=== PATIENT | male | born 1955 | race Two or more races ===

== ENCOUNTER 2024-01-08 13:59 | Outpatient (CLI) | payer MEDICAID, SELFPAY | END 2024-01-08 14:00 | disposition home or self-care (01) | LOC: NFLDREF 01-28 08:31 | PROVIDERS: Visit Provider Family Medicine | DX: N39.0 Urinary tract infection, site not specified (principal) | CPT/HCPCS: 87086 ==

== ENCOUNTER 2024-01-15 09:17 | Emergency (ER) | payer MEDICAID, SELFPAY ==
[2024-01-15 09:21] VITALS: BP 117/77; PULSE 72; RESP 18; TEMP 36.8; O2SAT 97
[2024-01-15 09:31] VITALS: RESP 18
--- NOTE | 2024-01-15 09:36 | ED_ITS ---
HPI - General Adult General Chief complaint: Unspecified Complaint, Adult Stated complaint: bodyaches Time Seen by Provider: 01/15/24 09:19 History of Present Illness HPI narrative: This 69-year-old male comes in reporting generalized aches and pains. He does not report any injury event but thinks that it might be related to the weather as he has had episodes of diffuse pain like this in the past. He was treated a week ago for urinary tract infection and states that he still has dysuria symptoms including increased frequency and pain with voiding. He was treated with a g of Rocephin intramuscularly followed by linezolid oral tablets. He arrives here with normal vital signs. Related Data Home Medications ?Medication ?Instructions ?Recorded ?Confirmed linezolid 600 mg tablet 600 mg PO BID 01/15/24 01/15/24 Previous Rx's ?Medication ?Instructions ?Recorded ketorolac 10 mg tablet 10 mg PO Q8H 5 days #15 tabs 01/15/24 Allergies Allergy/AdvReac Type Severity Reaction Status Date / Time No Known Drug Allergies Allergy Verified 01/15/24 09:27 Review of Systems Status of ROS: Reports: 10 or more systems reviewed and unremarkable except as noted in History and below Narrative: Constitutional: No fevers, no weight gain or loss. Generalized aches and pains. Eyes: No discharge. No vision changes. HENT: No congestion, no sore throat, no ear pain. Cardiovascular: No chest pain, no palpitations. Respiratory: No shortness of breath, no wheezes, no cough. Gastrointestinal: No abdominal pain, no vomiting, no diarrhea. Genitourinary: No hematuria. He reports dysuria symptoms as described above. Musculoskeletal: Normal range of motion. Skin: No rashes, no pruritis. Neurological: No dizziness, weakness, sensory change, speech change. Endo/Heme/Allergies: No bruising or bleeding. No polydipsia. Pysch: no suicidality, no anxiety, no insomnia. All other systems reviewed and are negative. PFSH PFS Social History Smoking Status: Current every day smoker What tobacco products do you use: cigarettes Do you use any of these nicotine containing products: None How often do you have a drink containing alcohol: never How often do you have six or more drinks on one occasion: Never AUDIT-C Alcohol total score: 0 Non-prescribed substance use: denies use Exam Narrative: Exam Narrative: Constitutional: Well-developed, well-nourished, no acute distress. HEENT: Normocephalic, atraumatic. Neck: Normal range of motion. Nontender. Supple. Heart: Intact distal pulses. Lungs: No chest discomfort. No wheezes, rhonchi, or rales. Abdomen: Nontender. Back: Normal range of motion. Extremities: Normal range of motion. No injury. Skin: Intact. No rash. Warm. No erythema or pallor. Neurologic: No altered sensation. No weakness. Alert and oriented. Psychiatric: No suicidality. No anxiety or depression. No insomnia. Nursing notes and vitals signs are reviewed. Const: Vital Signs, click to edit/add: Vital Signs - 24 hr 01/15/24 09:21 01/15/24 09:31 Temperature 98.2 F Pulse Rate [Right Pulse Oximeter] 72 Respiratory Rate 18 Respiratory Rate [ Lower Leg] 18 Blood Pressure [Ri ght Upper Arm] 117/77 Pulse Oximetry 97 Oxygen Delivery Me thod Room Air Course Vital Signs Vital signs: Initial Vital Signs Temperature 98.2 F 01/15/24 09:21 Temperature Source Temporal Artery Scan 01/15/24 09:21 Pulse Rate 72 01/15/24 09:21 Pulse Rhythm Regular 01/15/24 09:21 Respiratory Rate 18 01/15/24 09:21 Blood Pressure 117/77 01/15/24 09:21 Blood Pressure Mean 90 01/15/24 09:21 Blood Pressure Position Sitting 01/15/24 09:21 Pulse Oximetry 97 01/15/24 09:21 Oxygen Delivery Method Room Air 01/15/24 09:21 Vital Signs Temperature 98.2 F 01/15/24 09:21 Pulse Rate 72 01/15/24 09:21 Respiratory Rate 18 01/15/24 09:21 Blood Pressure 117/77 01/15/24 09:21 Pulse Oximetry 97 01/15/24 09:21 Oxygen Delivery Method Room Air 01/15/24 09:21 Temperature 98.2 F 01/15/24 09:21 Pulse Rate 72 01/15/24 09:21 Respiratory Rate 18 01/15/24 09:31 Blood Pressure 117/77 01/15/24 09:21 Pulse Oximetry 97 01/15/24 09:21 Oxygen Delivery Method Room Air 01/15/24 09:21 Medications Administered Medications: Generic Name Dose Route Start Last Admin Trade Name Meme PRN Reason Stop Dose Admin Dexamethasone 10 mg 01/15/24 10:21 01/15/24 10:25 Dexamethasone 10 Mg/Ml Inj PO 01/15/24 10:22 10 mg ONCE ONE Administration Medical Decision Making MDM Narrative Medical decision making narrative: This patient comes in reporting generalized body aches and pains over the past day or so. He was treated for urinary tract infection about a week ago and continues to finish the medicine prescribed for that. He states that he still has some dysuria symptoms. Urinalysis today shows no sign of infection. The patient states that he has had generalized aches and pains in the past and attributes that to stridor. He states that his mom had this also. I did discuss other lab and imaging options with the patient but seeing that his vital signs are completely normal these were declined. The patient did receive an oral dose of dexamethasone 10 mg and a prescription for Toradol. Lab Data Labs: Lab Results 01/15/24 Range/Units 09:36 Urine Color Yellow (Yellow) Urine Appearance Clear (Clear) Urine pH 5.5 (5.0-8.5) Ur Specific [place] >= 1.030 (1.000-1.030) Urine Protein 2+ A (Negative) Urine Glucose (UA) Negative (Negative) Urine Ketones Negative (Negative) Urine Blood Trace-intact A (Negative) Urine Nitrite Negative (Negative) Urine Bilirubin Negative (Negative) Urine Urobilinogen 0.2 (0.2-1.0) Ur Leukocyte Esterase Negative (Negative) Urine RBC 0-2 (0-2) Urine WBC 2-5 (0-5) Ur Squamous Epith Cells Few (None-Few) Urine Bacteria None (None) Urine Mucus Few A (None) Discharge Plan Discharge Clinical Impression: Generalized body aches Patient Disposition: Home, Self-Care Condition: Stable Additional Instructions: Take medication as needed and indicated. Follow up with MD return if worsening. Prescriptions: New ketorolac 10 mg tablet 10 mg PO Q8H 5 Days Qty: 15 0RF No Action linezolid 600 mg tablet 600 mg PO BID Follow Up/Referrals: Provider,Not a Local [Primary Care Provider] - Stand Alone Forms: [facility] Info Instructions
[2024-01-15 09:49] LABS: Appearance Urine Clear (Clear); Bilirubin Urine Negative (Negative); Blood Urine Trace-intact (Negative); Color Urine Yellow (Yellow); Glucose Urine Negative (Negative); Ketones Urine Negative (Negative); Leukocyte Esterase Urine Negative (Negative); Nitrite Urine Negative (Negative); Protein Urine 2+ (Negative); Specific Gravity Urine >= 1.030 (1.000-1.030); Urobilinogen Urine 0.2 (0.2-1.0); pH Urine 5.5 (5.0-8.5)
[2024-01-15 09:57] LABS: Mucus Urine Few; RBC Urine 0-2 (0-2); Squamous Epithelial Cell Urine Few (None-Few)
[2024-01-15] MEDS: dexAMETHasone 10 MG/ML inj PO (10:25)
== END 2024-01-15 10:35 | disposition home or self-care (01) ==
PROVIDERS: Emergency Provider Emergency Medicine Emergency Medical Services
DX: M79.18 Myalgia, other site (principal)
CPT/HCPCS: 81001; 99283; J1100